=== PATIENT | male | born 1990 | race Caucasian/White ===

== ENCOUNTER 2019-11-20 20:12 | Emergency (ER) | payer BC ==
[2019-11-20] MEDS ORDERED: Lidocaine 1% with EPINEPHrine 1:100,000 20 ML MDV INJECT ONE (20:35)
[2019-11-20] MEDS ORDERED: Diphtheria,Pertussis(Acell),Tetanus Vaccine 0.5 ML Syringe IM ONE (20:35)
[2019-11-20] MEDS ORDERED: Diphtheria,Pertussis(Acell),Tetanus Vaccine 0.5 ML Syringe ONE (20:46)
--- NOTE | 2019-11-20 21:36 | CR ---
INDICATION: Laceration injury with glass TECHNIQUE: Tibia-fibula radiograph 4 views right COMPARISON: None FINDINGS: Bone: No acute fractures or aggressive bone lesions are identified. Joint: The visualized knee and ankle joints are unremarkable. No significant joint effusion is seen. Soft tissue: Unremarkable. Large laceration soft tissue injury is present along the posterior distal calf with soft tissue gas and overlying bandage material which limits evaluation for foreign bodies. No radiopaque foreign bodies are seen. IMPRESSION: 1. No acute osseous injuries or abnormalities are noted. Dictated by Joel Pack MD @ 11/20/2019 9:36:10 PM Dictated by: Joel Pack MD @ 11/20/2019 21:36:14 (Electronically Signed)
[2019-11-20] MEDS ORDERED: Cephalexin 250 MG Cap PO ONE (22:11)
--- NOTE | 2019-11-20 22:16 | EDM.PDOC ---
ED HPI GENERAL MEDICAL PROBLEM - General Chief Complaint: Laceration Stated Complaint: CUT ON LEG Time Seen by Provider: 11/20/19 20:34 - History of Present Illness INITIAL COMMENTS - FREE TEXT/NARRATIVE: CHIEF COMPLAINT(S): Right leg laceration HISTORY OF PRESENT ILLNESS: This is a 29-year-old man without any past medical history who comes to the emergency department with a chief complaint of a right leg laceration. The patient states that prior to arrival he was moving a mirror when it fell and broke and cut his right leg. He states that he had some bleeding but denies any numbness, tingling, or weakness. He states that his tetanus is not up-to-date. He denies any other injury. REVIEW OF SYSTEMS: Constitutional: Denies fever, chills. Eyes: Denies eye pain Ears, Nose, Mouth, & Throat: Denies earache Cardiovascular: Denies chest pain Respiratory: Denies shortness of breath Gastrointestinal: Denies Nausea, vomiting, diarrhea, hematochezia. Genitourinary: Denies hematuria Skin: Positive for right leg laceration Neurological: Denies blurred vision, numbness, tingling, weakness Psychiatric: Denies depression PAST MEDICAL HISTORY: As per history of present illness and as reviewed below otherwise noncontributory. SURGICAL HISTORY: As per history of present illness and as reviewed below otherwise noncontributory. SOCIAL HISTORY: As per history of present illness and as reviewed below otherwise noncontributory. FAMILY HISTORY: As per history of present illness and as reviewed below otherwise noncontributory. EXAMINATION OF ORGAN SYSTEMS/BODY AREAS: Constitutional: Blood pressure is 139/72, heart rate 90, respiratory rate 18 with an oxygen saturation 98% on room air. Temperature 36.2 General: Overall well-appearing young man who is in no acute distress Psychiatric: Appropriate mood and affect. Eyes: No scleral icterus or conjunctival erythema ENMT: Moist mucous membranes. No pharyngeal erythema Cardiovascular: Regular, rate, and rythym. No gallops, murmurs, or rubs. Bilateral upper extremity and lower extremity pulses are symmetric and intact. Capillary refill in the distal right and left lower extremity are less than 2 seconds. Respiratory: Lungs clear to auscultation bilaterally. No wheezes, rales, or rhonchi. Gastrointestinal: Soft, non-tender, non-distended. Normoactive bowel sounds Genitourinary: No suprapubic tenderness Musculoskeletal: The patient has full range of motion of the right ankle with complete dorsi and plantar flexion. Skin: There are multiple lacerations to the patient's right lower extremity. The patient gastrocnemius is exposed however there is no tendon exposed. Lacerations are approximately 5 cm each without any active bleeding. Neurological: Alert, GCS 15 distal sensation is intact in the right lower extremity MEDICAL DECISION MAKING AND COURSE IN THE ED WITH INTERPRETATION/REVIEW OF DIAGNOSTIC STUDIES: This is a 29-year-old man without any significant past medical history who comes to the emergency department with right lower extremity lacerations without any active bleeding who is neurovascularly intact and has full range of motion. At this time we will obtain a right tib-fib x-ray to evaluate for foreign body. We will update the patient's tetanus status. The radiological images were viewed by myself along with reading the report from the radiologist. Right tib-fib x-ray does not reveal any osseous injury or abnormality. There is a large laceration along the posterior distal calf with soft tissue gas and overlying bandage. No obvious radio opaque foreign bodies. Laceration Repair Note Repair of the 5 cm and 2 cm right calf wound was done by myself. Wound was irrigated well with saline. Local anesthesia with lidocaine with epinephrine was performed. No foreign bodies were noted. The wound was repaired with 11 (4-0) directed nylon sutures. Wound edges approximated well. Bacitracin ointment and a sterile dressing were applied. Laceration Repair Note Repair of the 5 cm right calf wound was done by myself. Wound was irrigated well with saline. Local anesthesia with lidocaine with epinephrine was performed. No foreign bodies were noted. The wound was repaired with 6 (5-0) directed nylon sutures. Wound edges approximated well. Bacitracin ointment and a sterile dressing were applied. Laceration Repair Note Repair of the 7cm right calf wound was done by myself. Wound was irrigated well with saline. Local anesthesia with lidocaine with epinephrine was performed. No foreign bodies were noted. There is a venous bleed for which I used 4-0 absorbable suture which did stop the bleeding. The wound was repaired with 9 (4-0) directed nylon sutures. Wound edges approximated well. Bacitracin ointment and a sterile dressing were applied. After laceration repair we did provide the patient with crutches. I did discuss with him that there was some bleeding and that he needed to monitor the bleeding coming from the dressing. I did start the patient on Keflex prophylaxis given t he degree of the laceration. I discussed that he needs a follow-up with general surgery within 5 days for suture repair and reevaluation. He was amenable discharge at this time and had no further questions. In addition given the location I did discuss with him compartment syndrome precautions he is to return for any new worsening symptoms DISPOSITION: The patient was discharged home in stable condition. The patient will follow up with general surgery within 5 to 7 days CONDITION: Fair PROCEDURES: Multiple laceration repair as dictated above FINAL IMPRESSION(S)/DIAGNOSES: 1. Acute multiple laceration to right lower extremity status post suture repair Shar Khan M.D. - Related Data Allergies Allergy/AdvReac Type Severity Reaction Status Date / Time No Known Allergies Allergy Verified 11/20/19 20:26 Home Meds: Home Meds Ibuprofen [Motrin] 600 mg PO Q8H #21 tab 11/20/19 [Rx] cephALEXin [Keflex] 250 mg PO BID #14 capsule 11/20/19 [Rx] Past Medical History - Past Health History Medical/Surgical History: Denies Medical/Surgical History HEENT History: Reports: None Cardiovascular History: Reports: None Respiratory History: Reports: None Gastrointestinal History: Reports: None Genitourinary History: Reports: None Musculoskeletal History: Reports: None Neurological History: Reports: None Psychiatric History: Reports: None Hematologic History: Reports: None Immunologic History: Reports: None Oncologic (Cancer) History: Reports: None Dermatologic History: Reports: None - Infectious Disease History Infectious Disease History: Reports: None - Past Surgical History Head Surgeries/Procedures: Reports: None Social & Family History - Family History Family Medical History: Noncontributory - Tobacco Use Smoking Status *Q: Never Smoker Second Hand Smoke Exposure: No - Caffeine Use Caffeine Use: Reports: None - Recreational Drug Use Recreational Drug Use: No ED ROS GENERAL - Review of Systems Review Of Systems: See Below ED EXAM, SKIN/RASH Exam: See Below Course - Vital Signs Last Recorded V/S: Last Vital Signs Temp 36.2 C 11/20/19 20:23 Pulse 90 11/20/19 20:23 Resp 18 11/20/19 20:23 BP 139/72 11/20/19 20:23 Pulse Ox 98 11/20/19 20:23 - Orders/Labs/Meds Orders: Active Orders 24 hr Category Date Time Status Vaccines to be Administered [RC] PER UNIT ROUTINE Care 11/20/19 20:35 Active DME for Discharge [COMM] Stat Oth 11/20/19 22:14 Ordered Meds: Medications Discontinued Medications Generic Name Dose Route Start Last Admin Trade Name Sergo PRN Reason Stop Dose Admin Cephalexin 250 mg 11/20/19 22:11 11/20/19 22:30 Keflex PO 11/20/19 22:12 250 mg ONETIME ONE Administration Diphtheria/Tetanus/Acell Pertussis 0.5 ml 11/20/19 20:35 11/20/19 21:29 Boostrix IM 11/20/19 20:36 Not Given .ONCE ONE Diphtheria/Tetanus/Acell Pertussis Confirm 11/20/19 20:46 11/20/19 20:55 Adacel Administered 11/20/19 20:47 0.5 ml Dose Administration 0.5 ml .ROUTE .STK-MED ONE Lidocaine/Epinephrine 20 ml 11/20/19 20:35 11/20/19 20:59 Xylocaine 1% With Epinephrine 1:100,000 INJECT 11/20/19 20:36 20 ml ONETIME ONE Administration Departure - Departure Time of Disposition: 22:15 Disposition: Home, Self-Care 01 Condition: Fair Clinical Impression: Laceration - Discharge Information *PRESCRIPTION DRUG MONITORING PROGRAM REVIEWED*: No *COPY OF PRESCRIPTION DRUG MONITORING REPORT IN PATIENT LIGIA: No Prescriptions: cephALEXin [Keflex] 250 mg PO BID #14 capsule Ibuprofen [Motrin] 600 mg PO Q8H #21 tab Instructions: Laceration Care, Adult, [id number], Pain Medicine Instructions, [id number], Sutures, Maribel, or Adhesive Wound Closure, [id number] Referrals: PCP,None [Primary Care Provider] - Forms: ED Department Discharge Additional Instructions: The patient is informed of any results of their evaluation and diagnostic workup and all questions are answered. They are given discharge instructions and return precautions. The patient is stable for discharge. The patient states they understand and agree with the plan and that they will return if their symptoms get worse or if they have any new concerns. The following information is given to patients seen in the emergency department who are being discharged to home. This information is to outline your options for follow-up care. We provide all patients seen in our emergency department with a follow-up referral. The need for follow-up, as well as the timing and circumstances, are variable depending upon the specifics of your emergency department visit. If you don't have a primary care physician on staff, we will provide you with a referral. We always advise you to contact your personal physician following an emergency department visit to inform them of the circumstance of the visit and for follow-up with them and/or the need for any referrals to a consulting specialist. The emergency department will also refer you to a specialist when appropriate. This referral assures that you have the opportunity for follow-up care with a specialist. All of these measure are taken in an effort to provide you with optimal care, which includes your follow-up. Under all circumstances we always encourage you to contact your private physician who remains a resource for coordinating your care. When calling for follow-up care, please make the office aware that this follow-up is from your recent emergency room visit. If for any reason you are refused follow-up, please contact the [facility] Emergency Department at and asked to speak to the emergency department charge nurse. [facility] - General Surgery Professional Building [address] [place] [address], [address] [place] [address] Sepsis Event Note (ED) - Evaluation Sepsis Screening Result: No Definite Risk - Focused Exam Vital Signs: Vital Signs Temp Pulse Resp BP Pulse Ox 11/20/19 20:23 36.2 C 90 18 139/72 98 - My Orders Last 24 Hours: My Active Orders 11/20/19 20:35 Vaccines to be Administered [RC] PER UNIT ROUTINE 11/20/19 22:14 DME for Discharge [COMM] Stat - Assessment/Plan Last 24 Hours: My Active Orders 11/20/19 20:35 Vaccines to be Administered [RC] PER UNIT ROUTINE 11/20/19 22:14 DME for Discharge [COMM] Stat
== END 2019-11-20 22:33 | disposition home or self-care (01) ==
LOC: MW.ED 20:12
DX: S81.811A Laceration without foreign body, right lower leg, initial encounter (principal); Z23 Encounter for immunization; W25.XXXA Contact with sharp glass, initial encounter
CPT/HCPCS: 12005; 73590; 90471; 90715; 99283; A9270; 12002; 99282

== ENCOUNTER 2019-11-26 13:35 | Emergency (ER) | payer BC ==
--- NOTE | 2019-11-26 22:36 | PCM.SN.2 ---
- Free Text/Narrative Note: Patient left prior to being triaged/medical screening.
== END 2019-11-26 14:05 | disposition left against medical advice (07) ==
LOC: MW.ED 13:35
DX: Z53.21 Procedure and treatment not carried out due to patient leaving prior to being seen by health care provider (principal)

== ENCOUNTER 2019-11-27 14:49 | Emergency (ER) | payer BC | END 2019-11-27 16:00 | disposition left against medical advice (07) | LOC: MW.ED 14:49 | DX: S81.811D Laceration without foreign body, right lower leg, subsequent encounter (principal); W20.8XXD Other cause of strike by thrown, projected or falling object, subsequent encounter | CPT/HCPCS: 99281 ==